=== PATIENT | female | born 1965 | race Caucasian/White ===

== ENCOUNTER 2017-09-27 07:15 | Day surgery (SDC) | payer OTHER ==
[2017-09-26 15:50] LABS: CHLORIDE,CL 105 mmol/L (98-107); SODIUM,NA 140 mmol/L (136-145)
[~2017-09-27 07:15] MED LIST: Sodium Chloride 0.9% 10 ML Syringe FLUSH PRN; Sodium Chloride 0.9% 2.5 ML Syringe FLUSH PRN; ceFAZolin 2 GM in Premix Bag 1 BAG IV ONE
[2017-09-27] MEDS ORDERED: Propofol 200 MG/20 ML SDV ONE (07:25)
[2017-09-27] MEDS ORDERED: HYDROmorphone 2 MG/ML SDV ONE (07:26)
[2017-09-27] MEDS ORDERED: fentaNYL 100 MCG/2 ML SDV ONE (07:26)
[2017-09-27] MEDS ORDERED: Midazolam 1 MG/ML 2 ML SDV ONE (07:26)
[2017-09-27] MEDS: Lactated Ringers 1,000 ML IV SCH ×3 (07:56→20:25)
[2017-09-27] MEDS ORDERED: Scopolamine 1.5 MG Transdermal Patch TRDERM PRN (08:17)
--- NOTE | 2017-09-27 08:19 | PCM.PREANE ---
Preanesthetic Assessment - Anesthesia/Transfusion/Family Hx Anesthesia History: Prior Anesthesia Without Reaction Family History of Anesthesia Reaction: No Transfusion History: No Prior Transfusion(s) Intubation History: Unknown - Review of Systems General: No Symptoms Pulmonary: No Symptoms Cardiovascular: No Symptoms Gastrointestinal: No Symptoms Neurological: No Symptoms Other: Reports: None - Physical Assessment O2 Sat by Pulse Oximetry: 97 Respiratory Rate: 16 Vital Signs: Last Vital Signs Temp 36.4 C 09/27/17 07:54 Pulse 76 09/27/17 07:54 Resp 16 09/27/17 07:54 BP 129/84 09/27/17 07:54 Pulse Ox 97 09/27/17 07:54 Height: 1.57 m Weight: 99.337 kg ASA Class: 2 Mental Status: Alert & Oriented x3 Airway Class: Mallampati = 2 Dentition: Reports: Dentures (upper) Thyro-Mental Finger Breadths: 3 Mouth Opening Finger Breadths: 2 ROM/Head Extension: Full Lungs: Clear to Auscultation, Normal Respiratory Effort Cardiovascular: Regular Rate, Regular Rhythm - Lab Values: Laboratory Last Values WBC 9.51 K/uL (4.0-11.0) 09/26/17 14:55 RBC 4.40 M/uL (4.30-5.90) 09/26/17 14:55 Hgb 12.9 g/dL (12.0-16.0) 09/26/17 14:55 Hct 38.9 % (36.0-46.0) 09/26/17 14:55 MCV 88.4 fL (80.0-98.0) 09/26/17 14:55 MCH 29.3 pg (27.0-32.0) 09/26/17 14:55 MCHC 33.2 g/dL (31.0-37.0) 09/26/17 14:55 RDW Std Deviation 44.2 fl (28.0-62.0) 09/26/17 14:55 RDW Coeff of Erick 14 % (11.0-15.0) 09/26/17 14:55 Plt Count 244 K/uL (150-400) 09/26/17 14:55 MPV 9.70 fL (7.40-12.00) 09/26/17 14:55 Nucleated RBC % 0.0 /100WBC 09/26/17 14:55 Nucleated RBCs # 0 K/uL 09/26/17 14:55 Sodium 140 mmol/L (136-145) 09/26/17 14:55 Potassium 3.8 mmol/L (3.5-5.1) 09/26/17 14:55 Chloride 105 mmol/L (98-107) 09/26/17 14:55 Carbon Dioxide 26.3 mmol/L (21.0-32.0) 09/26/17 14:55 BUN 13 mg/dL (7.0-18.0) 09/26/17 14:55 Creatinine 0.8 mg/dL (0.6-1.0) 09/26/17 14:55 Est Cr Clr Drug Dosing 65.80 mL/min 09/26/17 14:55 Estimated GFR (MDRD) > 60.0 ml/min 09/26/17 14:55 Glucose 88 mg/dL (74-106) 09/26/17 14:55 Calcium 8.7 mg/dL (8.5-10.1) 09/26/17 14:55 HCG, Qual NEGATIVE (NEG) 09/26/17 14:55 Blood Type AB NEGATIVE 09/26/17 14:55 Antibody Screen NEGATIVE 09/26/17 14:55 - Allergies Allergies/Adverse Reactions: Allergies Allergy/AdvReac Type Severity Reaction Status Date / Time amoxicillin Allergy Rash Verified 09/27/17 08:17 Sulfa (Sulfonamide Allergy Rash Verified 09/27/17 08:17 Antibiotics) - Blood Blood Available: No - Anesthesia Plan Pre-Op Medication Ordered: None - Acknowledgements Anesthesia Type Planned: General Anesthesia Pt an Appropriate Candidate for the Planned Anesthesia: Yes Alternatives and Risks of Anesthesia Discussed w Pt/Guardian: Yes Pt/Guardian Understands and Agrees with Anesthesia Plan: Yes PreAnesthesia Questionnaire HEENT History: Reports: Other (See Below) Other HEENT History: top denture Cardiovascular History: Reports: Hypertension, Other (See Below) Other Cardiovascular History: states high blood pressure in the past but is now under control due to weight loss Gastrointestinal History: Reports: None Genitourinary History: Reports: None ADMINISTRATIVE PROGRAM SPECIALIST History: Reports: Dysfunctional Uterine Bleeding Musculoskeletal History: Reports: Arthritis (kneese) Psychiatric History: Reports: Anxiety, Depression Endocrine/Metabolic History: Reports: Obesity/BMI 30+ (BMI 40.1) - Past Surgical History Head Surgeries/Procedures: Reports: None GI Surgical History: Reports: Cholecystectomy Female Surgical History: Reports: Cervical Cryotherapy - SUBSTANCE USE Smoking Status *Q: Never Smoker Recreational Drug Use History: No - HOME MEDS Home Medications: Home Meds Multivitamin W/Iron, Minerals [Compete] 1 tab PO DAILY 09/24/17 [History] Sertraline HCl 75 mg PO DAILY 09/24/17 [History] traZODone HCl [Trazodone HCl] 50 mg PO BEDTIME PRN 09/24/17 [History] - CURRENT (IN HOUSE) MEDS Current Meds: Current Medications Lactated Ringer's (Ringers, Lactated) 1,000 mls @ 125 mls/hr IV ASDIRECTED KRISTINA Last Admin: 09/27/17 07:56 Dose: 125 mls/hr Sodium Chloride (Saline Flush) 10 ml FLUSH ASDIRECTED PRN PRN Reason: Keep Vein Open Sodium Chloride (Saline Flush) 2.5 ml FLUSH ASDIRECTED PRN PRN Reason: Keep Vein Open Discontinued Medications Fentanyl (Sublimaze) Confirm Administered Dose 100 mcg .ROUTE .STK-MED ONE Stop: 09/27/17 07:27 Hydromorphone HCl (Dilaudid) Confirm Administered Dose 2 mg .ROUTE .STK-MED ONE Stop: 09/27/17 07:27 Cefazolin Sodium/Dextrose 2 gm (/ Premix) 50 mls @ 100 mls/hr IV ONETIME ONE Stop: 09/26/17 14:42 Midazolam HCl (Versed 1 Mg/Ml) Confirm Administered Dose 2 mg .ROUTE .STK-MED ONE Stop: 09/27/17 07:27 Propofol (Diprivan 20 Ml) Confirm Administered Dose 200 mg .ROUTE .STK-MED ONE Stop: 09/27/17 07:26
[2017-09-27] MEDS ORDERED: Rocuronium 10 MG/ML 10 ML Syringe ONE (08:39)
[2017-09-27] MEDS ORDERED: Lidocaine 2% 5 ML SDV ONE ×2 (08:39→09:20)
[2017-09-27] MEDS ORDERED: Glycopyrrolate 0.2 MG/ML SDV ONE ×2 (08:39→11:17)
[2017-09-27] MEDS ORDERED: Neostigmine Methylsulfate 1 MG/ML 5 ML Syringe ONE (08:39)
[2017-09-27] MEDS ORDERED: fentaNYL 100 MCG/2 ML SDV IVPUSH PRN (08:56)
[2017-09-27] MEDS ORDERED: diphenhydrAMINE 50 MG/ML SDV ONE (09:49)
[2017-09-27] MEDS ORDERED: Ondansetron 4 MG/2 ML SDV ONE (09:49)
[2017-09-27] MEDS ORDERED: Atropine 1 MG/ML SDV ONE (10:14)
[2017-09-27] MEDS ORDERED: Fluorescein 5 ML Vial ONE (10:28)
[2017-09-27] MEDS ORDERED: Promethazine 25 MG/ML SDV IM PRN (10:40)
[2017-09-27] MEDS ORDERED: Morphine 2 MG/ML Syringe IVPUSH PRN (10:40)
[2017-09-27] MEDS ORDERED: Acetaminophen/oxyCODONE 325-5 MG Tab PO PRN (10:40)
[2017-09-27] MEDS ORDERED: Ondansetron 4 MG/2 ML SDV IVPUSH PRN (10:40)
[2017-09-27] MEDS ORDERED: Ketorolac 30 MG/ML SDV IVPUSH PRN (10:40)
[2017-09-27] MEDS ORDERED: Ketorolac 30 MG/ML SDV IVPUSH ONE (10:40)
[2017-09-27] MEDS ORDERED: Morphine 4 MG/ML Syringe IVPUSH PRN (10:40)
--- NOTE | 2017-09-27 10:44 | PCM.OPNOTE ---
- General Post-Op/Procedure Note Date of Surgery/Procedure: 09/27/17 Pre Op Diagnosis: Bleeding Post-Op Diagnosis: Same Anesthesia Technique: General LMA Primary Surgeon: Darryl Kwon Operations Asst: Mary Kay Bermudez EBL in mLs: 125 Complications: None Condition: Good
[2017-09-27] MEDS ORDERED: Naloxone 0.4 MG/ML Syringe ONE (10:49)
[2017-09-27] MEDS ORDERED: Flumazenil 0.1 MG/ML 5 ML MDV ONE (11:17)
--- NOTE | 2017-09-27 11:26 | OR ---
SURGEON: Darryl Kwon MD DATE OF PROCEDURE: PREOPERATIVE DIAGNOSIS: Menometrorrhagia. POSTOPERATIVE DIAGNOSIS: Menometrorrhagia. OPERATIONS PERFORMED: Total vaginal hysterectomy, vaginal, bilateral salpingo-oophorectomy, and cystoscopy. BUSINESS APPLICATIONS ANALYST: BEL Solitario and an OR tech. ANESTHESIA: General endotracheal intubation. ESTIMATED BLOOD LOSS: 125 to 150 mL. COMPLICATIONS: None. FINDINGS: Uterus about 8-week size. Both ovaries are essentially normal. INDICATION FOR THE SURGERY: [place] referred to the admit note. PROCEDURE IN DETAIL: The patient was brought to the OR, properly identified and after adequate level of general anesthesia, the patient placed in lithotomy position, prepped and draped in sterile fashion as usual. Straight catheter was used to empty the bladder and then a short weighted speculum was placed in the vagina, circular incision in the vaginal mucosa with electrocautery around the cervix done. The posterior cul-de-sac was entered posteriorly. The peritoneum and vagina intact posteriorly. Short weighted speculum was placed with extending long weighted speculum. The uterosacral ligament identified from both sides, clamped with a curved Zeppelin, transected, and suture ligated with 2-0 Vicryl pop-off. The same thing was done with the cardinal ligament and then the cervicovesical space was entered anteriorly pushing the bladder completely away from the operative field. The broad ligament was clamped on both sides with curved Zeppelin, transected, and suture ligated with 2-0 Vicryl pop-off. The uterine vessel was suture ligated at this step. Another bites taken at area of the round ligament on both sides, transected, and suture ligated with 2-0 Vicryl pop-off. The uterus delivered posteriorly and superior pedicle clamped with 90 degree Zeppelin. The tubes and ovary included with the specimen. Then the superior pedicle tied first with the Endo-loops and then a free tie on both sides. Inspection of the operative field shows there was no oozing, no bleeding at this time and then so we proceeded to close the vaginal cuff with 2-0 Vicryl interrupted [id number] suture. After that while we were doing that, we asked Anesthesia to give the patient fluorescein and cystoscopy was performed. The bladder was intact. Both ureteric orifices were seen with the dye coming from both of them. Thus, the patency of both ureters verified. Satisfied with these findings, the procedure ended. The instrument and sponge count was correct. The patient tolerated the procedure well, went to the recovery room in stable general condition. YAO BEYER /[id number]
--- NOTE | 2017-09-27 13:40 | PCM48HPAN ---
Post Anesthesia Note - EVALUATION WITHIN 48HRS OF ANESTHETIC Vital Signs in Normal Range: Yes Patient Participated in Evaluation: Yes Respiratory Function Stable: Yes Airway Patent: Yes Cardiovascular Function Stable: Yes Hydration Status Stable: Yes Pain Control Satisfactory: Yes Nausea and Vomiting Control Satisfactory: Yes Mental Status Recovered: Yes Resp Rate: 18 - COMMENTS/OBSERVATIONS Free Text/Narrative:: Pt resting comfortably - no apparent anesthesia complications.
[2017-09-27] MEDS: Acetaminophen/oxyCODONE 325-5 MG Tab PO PRN ×2 (16:44→23:20)
[2017-09-28 05:49] LABS: CHLORIDE,CL 105 mmol/L (98-107); SODIUM,NA 137 mmol/L (136-145)
--- NOTE | 2017-09-28 08:43 | PCM.SURGPN ---
- General Info Date of Service: 09/28/17 POD#: 1 Functional Status: Reports: Pain Controlled - Review of Systems General: Reports: No Symptoms HEENT: Reports: No Symptoms Pulmonary: Reports: No Symptoms Cardiovascular: Reports: No Symptoms Gastrointestinal: Reports: No Symptoms Genitourinary: Reports: No Symptoms Musculoskeletal: Reports: No Symptoms Skin: Reports: No Symptoms Neurological: Reports: No Symptoms Psychiatric: Reports: No Symptoms - Patient Data Vitals - Most Recent: Last Vital Signs Temp 36.8 C 09/28/17 07:57 Pulse 69 09/28/17 07:57 Resp 16 09/28/17 07:57 BP 99/62 09/28/17 07:57 Pulse Ox 92 L 09/28/17 07:57 Weight - Most Recent: 99.337 kg I&O - Last 24 Hours: Intake & Output 09/27/17 09/28/17 09/28/17 22:59 06:59 14:59 Intake Total 961 1783 Output Total 100 1125 Balance 861 658 Lab Results Last 24 Hrs: Laboratory Results - last 24 hr 09/28/17 09/28/17 Range/Units 05:15 05:15 WBC 11.92 H (4.0-11.0) K/uL RBC 3.75 L (4.30-5.90) M/uL Hgb 10.9 L (12.0-16.0) g/dL Hct 33.1 L (36.0-46.0) % MCV 88.3 (80.0-98.0) fL MCH 29.1 (27.0-32.0) pg MCHC 32.9 (31.0-37.0) g/dL RDW Std Deviation 44.9 (28.0-62.0) fl RDW Coeff of Erick 14 (11.0-15.0) % Plt Count 220 (150-400) K/uL MPV 9.70 (7.40-12.00) fL Neut % (Auto) 78.3 (48.0-80.0) % Lymph % (Auto) 14.0 L (16.0-40.0) % [place] % (Auto) 7.4 (0.0-15.0) % Eos % (Auto) 0.1 (0.0-7.0) % Baso % (Auto) 0.2 (0.0-1.5) % Neut # (Auto) 9.3 H (1.4-5.7) K/uL Lymph # (Auto) 1.7 (0.6-2.4) K/uL [place] # (Auto) 0.9 H (0.0-0.8) K/uL Eos # (Auto) 0.0 (0.0-0.7) K/uL Baso # (Auto) 0.0 (0.0-0.1) K/uL Nucleated RBC % 0.0 /100WBC Nucleated RBCs # 0 K/uL Sodium 137 (136-145) mmol/L Potassium 3.7 (3.5-5.1) mmol/L Chloride 105 (98-107) mmol/L Carbon Dioxide 25.8 (21.0-32.0) mmol/L BUN 14 (7.0-18.0) mg/dL Creatinine 0.7 (0.6-1.0) mg/dL Est Cr Clr Drug Dosing 75.20 mL/min Estimated GFR (MDRD) > 60.0 ml/min Glucose 107 H (74-106) mg/dL Calcium 8.0 L (8.5-10.1) mg/dL Med Orders - Current: Current Medications Lactated Ringer's (Ringers, Lactated) 1,000 mls @ 125 mls/hr IV ASDIRECTED KRISTINA Last Admin: 09/27/17 20:25 Dose: 125 mls/hr Ketorolac Tromethamine (Toradol) 30 mg IVPUSH Q6H PRN PRN Reason: Pain (severe 7-10) Stop: 10/02/17 10:40 Morphine Sulfate (Morphine) 2 mg IVPUSH Q2H PRN PRN Reason: Pain (severe 7-10) Morphine Sulfate (Morphine) 4 mg IVPUSH Q2H PRN PRN Reason: Pain (severe 7-10) Ondansetron HCl (Zofran) 4 mg IVPUSH Q6H PRN PRN Reason: Nausea/Vomiting Last Admin: 09/27/17 20:26 Dose: 4 mg Oxycodone/Acetaminophen (Percocet 325-5 Mg) 1 tab PO Q4H PRN PRN Reason: Pain (moderate 4-6) Oxycodone/Acetaminophen (Percocet 325-5 Mg) 2 tab PO Q4H PRN PRN Reason: Pain (moderate 4-6) Last Admin: 09/27/17 23:20 Dose: 2 tab Promethazine HCl (Phenergan) 25 mg IM Q6H PRN PRN Reason: Nausea/Vomiting Scopolamine (Transderm-Scop) 1.5 mg TRDERM Q72H PRN PRN Reason: Nausea Last Admin: 09/27/17 08:29 Dose: 1.5 mg Sodium Chloride (Saline Flush) 10 ml FLUSH ASDIRECTED PRN PRN Reason: Keep Vein Open Sodium Chloride (Saline Flush) 2.5 ml FLUSH ASDIRECTED PRN PRN Reason: Keep Vein Open Discontinued Medications Atropine Sulfate (Atropine 1 Mg/Ml) Confirm Administered Dose 1 mg .ROUTE .STK- MED ONE Stop: 09/27/17 10:15 Diphenhydramine HCl (Benadryl) Confirm Administered Dose 50 mg .ROUTE .STK-MED ONE Stop: 09/27/17 09:50 Fentanyl (Sublimaze) Confirm Administered Dose 100 mcg .ROUTE .STK-MED ONE Stop: 09/27/17 07:27 Fentanyl (Sublimaze) 50 mcg IVPUSH Q5M PRN PRN Reason: Pain (severe 7-10) Stop: 09/27/17 13:00 Flumazenil (Romazicon) Confirm Administered Dose 0.5 mg .ROUTE .STK-MED ONE Stop: 09/27/17 11:18 Fluorescein Sodium (Ak-Fluor) Confirm Administered Dose 5 ml .ROUTE .STK-MED ONE Stop: 09/27/17 10:29 Glycopyrrolate (Robinul) Confirm Administered Dose 0.4 mg .ROUTE .STK-MED ONE Stop: 09/27/17 08:40 Glycopyrrolate (Robinul) Confirm Administered Dose 0.2 mg .ROUTE .STK-MED ONE Stop: 09/27/17 11:18 Hydromorphone HCl (Dilaudid) Confirm Administered Dose 2 mg .ROUTE .STK-MED ONE Stop: 09/27/17 07:27 Cefazolin Sodium/Dextrose 2 gm (/ Premix) 50 mls @ 100 mls/hr IV ONETIME ONE Stop: 09/26/17 14:42 Ketorolac Tromethamine (Toradol) 30 mg IVPUSH ONETIME ONE Stop: 09/27/17 10:41 Last Admin: 09/27/17 12:06 Dose: 30 mg Lidocaine (Xylocaine-Mpf 2%) Confirm Administered Dose 5 ml .ROUTE .STK-MED ONE Stop: 09/27/17 08:40 Lidocaine (Xylocaine-Mpf 2%) Confirm Administered Dose 5 ml .ROUTE .STK-MED ONE Stop: 09/27/17 09:21 Midazolam HCl (Versed 1 Mg/Ml) Confirm Administered Dose 2 mg .ROUTE .STK-MED ONE Stop: 09/27/17 07:27 Naloxone HCl (Narcan) Confirm Administered Dose 0.4 mg .ROUTE .STK-MED ONE Stop: 09/27/17 10:50 Neostigmine Methylsulfate (Neostigmine) Confirm Administered Dose 5 mg .ROUTE .STK-MED ONE Stop: 09/27/17 08:40 Ondansetron HCl (Zofran) Confirm Administered Dose 4 mg .ROUTE .STK-MED ONE Stop: 09/27/17 09:50 Propofol (Diprivan 20 Ml) Confirm Administered Dose 200 mg .ROUTE .STK-MED ONE Stop: 09/27/17 07:26 Rocuronium [place] (Zemuron) Confirm Administered Dose 100 mg .ROUTE .STK-MED ONE Stop: 09/27/17 08:40 - Exam Wound/Incisions: Healing Well General: Alert, Oriented HEENT: Pupils Equal Neck: Supple Lungs: Clear to Auscultation, Normal Respiratory Effort Cardiovascular: Regular Rate, Regular Rhythm GI/Abdominal Exam: Normal Bowel Sounds, Soft, Non-Tender, No Organomegaly, No Distention, No Abnormal Bruit, No Mass, Pelvis Stable Extremities: Normal Inspection, Normal Range of Motion, Non-Tender, No Pedal Edema, Normal Capillary Refill Skin: Warm, Dry, Intact Neurological: No New Focal Deficit Psy/Mental Status: Alert, Normal Affect, Normal Mood - Problem List Review Problem List Initiated/Reviewed/Updated: Yes - My Orders Last 24 Hours: Active Orders 24 hr Category Date Time Status Patient Status [ADT] Routine ADT 09/27/17 10:40 Active Antiembolic Devices [RC] PER UNIT ROUTINE Care 09/27/17 10:41 Active Bradycardia-Neuroaxis [employer] [RC] ROUTINE Care 09/27/17 08:56 Active Hypertension-Neuroaxis [employer] [RC] ROUTINE Care 09/27/17 08:56 Active Hypotension-Neuroaxis [employer] [RC] ROUTINE Care 09/27/17 08:56 Active Notify Provider Vital Signs [RC] ASDIRECTED Care 09/27/17 10:40 Active Oxygen Therapy [RC] ASDIRECTED Care 09/27/17 10:40 Active RT Incentive Spirometry [RC] Q2HWA Care 09/27/17 10:40 Active Up With Assistance [RC] PER UNIT ROUTINE Care 09/27/17 10:40 Active Up ad Rosa [RC] PER UNIT ROUTINE Care 09/27/17 10:40 Active Regular Diet [DIET] Diet 09/27/17 Lunch Active Acetaminophen/oxyCODONE [Percocet 325-5 MG] Med 09/27/17 10:40 Active 1 tab PO Q4H PRN Acetaminophen/oxyCODONE [Percocet 325-5 MG] Med 09/27/17 10:40 Active 2 tab PO Q4H PRN Ketorolac [Toradol] Med 09/27/17 10:40 Active 30 mg IVPUSH Q6H PRN Morphine Med 09/27/17 10:40 Active 2 mg IVPUSH Q2H PRN Morphine Med 09/27/17 10:40 Active 4 mg IVPUSH Q2H PRN Ondansetron [Zofran] Med 09/27/17 10:40 Active 4 mg IVPUSH Q6H PRN Promethazine [Phenergan] Med 09/27/17 10:40 Active 25 mg IM Q6H PRN Scopolamine [Transderm-Scop] Med 09/27/17 08:17 Active 1.5 mg TRDERM Q72H PRN Peripheral IV Discontinue [OM.PC] Routine Oth 09/27/17 10:40 Ordered Sequential Compression Device [OM.PC] Per Unit Routine Oth 09/27/17 10:40 Ordered Resuscitation Status Routine Resus Stat 09/27/17 10:40 Ordered Medication Orders Lactated Ringer's (Ringers, Lactated) 1,000 mls @ 125 mls/hr IV ASDIRECTED KRISTINA Last Admin: 09/27/17 20:25 Dose: 125 mls/hr Infusion: 09/27/17 20:24 Dose: 125 mls/hr Admin: 09/27/17 12:55 Dose: 125 mls/hr Infusion: 09/27/17 12:55 Dose: 125 mls/hr Admin: 09/27/17 07:56 Dose: 125 mls/hr Ketorolac Tromethamine (Toradol) 30 mg IVPUSH Q6H PRN PRN Reason: Pain (severe 7-10) Stop: 10/02/17 10:40 Morphine Sulfate (Morphine) 2 mg IVPUSH Q2H PRN PRN Reason: Pain (severe 7-10) Morphine Sulfate (Morphine) 4 mg IVPUSH Q2H PRN PRN Reason: Pain (severe 7-10) Ondansetron HCl (Zofran) 4 mg IVPUSH Q6H PRN PRN Reason: Nausea/Vomiting Last Admin: 09/27/17 20:26 Dose: 4 mg Oxycodone/Acetaminophen (Percocet 325-5 Mg) 1 tab PO Q4H PRN PRN Reason: Pain (moderate 4-6) Oxycodone/Acetaminophen (Percocet 325-5 Mg) 2 tab PO Q4H PRN PRN Reason: Pain (moderate 4-6) Last Admin: 09/27/17 23:20 Dose: 2 tab Admin: 09/27/17 16:44 Dose: 2 tab Promethazine HCl (Phenergan) 25 mg IM Q6H PRN PRN Reason: Nausea/Vomiting Scopolamine (Transderm-Scop) 1.5 mg TRDERM Q72H PRN PRN Reason: Nausea Last Admin: 09/27/17 08:29 Dose: 1.5 mg Sodium Chloride (Saline Flush) 10 ml FLUSH ASDIRECTED PRN PRN Reason: Keep Vein Open Sodium Chloride (Saline Flush) 2.5 ml FLUSH ASDIRECTED PRN PRN Reason: Keep Vein Open - Assessment Assessment (Free Text/Narrative):: Status post total vaginal hysterectomy and vaginal bilateral salpingo- oophorectomy postoperative day #1 patient is doing well she have no complain and no vaginal bleeding she is on regular diet tolerated very well she is voiding without any problem. Had labwork is stable and within normal limits - Plan Plan (Free Text/Narrative):: I'm sending her home today the postvasectomy instruction is given to the patient she was given a prescription of Percocet 7.5/325 for postoperative pain and she is to come to the office 1 week 4 day of her discharge for late postoperative checkup
[2017-09-28] MEDS: Acetaminophen/oxyCODONE 325-5 MG Tab PO PRN (09:11)
== END 2017-09-28 10:00 | disposition home or self-care (01) ==
LOC: MW.SDS 07:15 → MW.MS 10:40 → MW.SDS 09-28 10:00
PROVIDERS: ATTEND Obstetrics & Gynecology
DX: N80.0 Endometriosis of uterus (principal); N72 Inflammatory disease of cervix uteri; N88.8 Other specified noninflammatory disorders of cervix uteri; N83.02 Follicular cyst of left ovary; N83.01 Follicular cyst of right ovary; F41.9 Anxiety disorder, unspecified; M19.90 Unspecified osteoarthritis, unspecified site; F32.9 Major depressive disorder, single episode, unspecified; G47.00 Insomnia, unspecified; I10 Essential (primary) hypertension; E66.9 Obesity, unspecified; Z79.899 Other long term (current) drug therapy; Z88.1 Allergy status to other antibiotic agents; Z88.2 Allergy status to sulfonamides; Z68.41 Body mass index [BMI] 40.0-44.9, adult
CPT/HCPCS: 36415; 58262; 80048; 84703; 85025; 85027; 86850; 86900; 86901; A9270; J0461; J1170; J1200; J1885; J2250; J2405; J3010; J7120; 00944; 88307; J2704